=== PATIENT | female | born 1995 | race Caucasian/White ===

== ENCOUNTER 2018-02-28 20:27 | Emergency (ER) | payer BC ==
[~2018-02-28] VITALS: Ht 157.5 cm; Wt 81.7 kg
[~2018-02-28 20:27] MED LIST: AMOX500 PO; BIRTH CONTROL IMPLAN; Bactrim 400-801 EACH PO; Bactrim Ds Tab1 EACH PO; PROCODE120 PO
[2018-02-28] MEDS ORDERED: MIDO5 PO (20:54)
[2018-02-28] MEDS ORDERED: IBUP800 PO (22:21)
[2018-02-28] MEDS ORDERED: Percocet 5-3251 EACH PO (22:23)
== END 2018-02-28 22:56 | disposition home or self-care (01) ==
LOC: ER 20:27
DX: S30.0XXA Contusion of lower back and pelvis, initial encounter (principal); M54.16 Radiculopathy, lumbar region; Z88.8 Allergy status to other drugs, medicaments and biological substances; Z79.899 Other long term (current) drug therapy; V80.010A Animal-rider injured by fall from or being thrown from horse in noncollision accident, initial encounter
CPT/HCPCS: 71100; 72100; 99284-25

== ENCOUNTER 2018-03-15 19:10 | Emergency (ER) | payer BC ==
[~2018-03-15] VITALS: Ht 157.5 cm; Wt 81.7 kg
[~2018-03-15 19:10] MED LIST changes: +IBUP800 PO; +MIDO5 PO; +Percocet 5-3251 EACH PO
[2018-03-15] MEDS ORDERED: METCAR500 PO (19:35)
[2018-03-15] MEDS ORDERED: IBUP600 PO (20:21)
[2018-03-15] MEDS ORDERED: HYDR1TAB94 PO (20:21)
== END 2018-03-15 20:41 | disposition home or self-care (01) ==
LOC: ER 19:10
DX: S32.029A Unspecified fracture of second lumbar vertebra, initial encounter for closed fracture (principal); S32.039A Unspecified fracture of third lumbar vertebra, initial encounter for closed fracture; Z88.8 Allergy status to other drugs, medicaments and biological substances; V80.010A Animal-rider injured by fall from or being thrown from horse in noncollision accident, initial encounter
CPT/HCPCS: 72131; 99283-25

== ENCOUNTER 2018-06-27 17:41 | Emergency (ER) | payer BC ==
[~2018-06-27] VITALS: Ht 157.5 cm; Wt 90.7 kg
[~2018-06-27 17:41] MED LIST changes: +Augmentin 875-1 EACH PO; +HYDR1TAB94 PO; +IBUP600 PO; +METCAR500 PO
[2018-06-27] MEDS ORDERED: CYCL10 PO (18:37)
[2018-06-27] MEDS ORDERED: Naprosyn500 MG PO (18:37)
[2018-06-27] MEDS ORDERED: TRAM50 PO (18:37)
== END 2018-06-27 18:47 | disposition home or self-care (01) ==
LOC: ER 17:41
DX: M54.5 Low back pain (principal); Z88.1 Allergy status to other antibiotic agents; Z79.899 Other long term (current) drug therapy
CPT/HCPCS: 72100; 99283-25

== ENCOUNTER 2018-12-10 09:31 | Emergency (ER) | payer BC ==
[~2018-12-10] VITALS: Ht 162.6 cm; Wt 86.2 kg
[~2018-12-10 09:31] MED LIST changes: +CYCL10 PO; +Naprosyn500 MG PO; +TRAM50 PO
== END 2018-12-10 10:47 | disposition home or self-care (01) ==
LOC: ER 09:31
DX: M54.5 Low back pain (principal); G89.29 Other chronic pain; Z88.8 Allergy status to other drugs, medicaments and biological substances
CPT/HCPCS: 99283

== ENCOUNTER 2019-06-16 10:04 | Emergency (ER) | payer BC ==
[~2019-06-16] VITALS: Ht 157.5 cm; Wt 99.8 kg
[2019-06-16] MEDS ORDERED: Flonase 0.05% N16 GM (11:51)
[2019-06-16] MEDS ORDERED: Augmentin 875-1 EACH PO (11:51)
== END 2019-06-16 11:56 | disposition home or self-care (01) ==
LOC: ER 10:04
DX: J01.90 Acute sinusitis, unspecified (principal); B96.89 Other specified bacterial agents as the cause of diseases classified elsewhere; H66.91 Otitis media, unspecified, right ear; Z88.8 Allergy status to other drugs, medicaments and biological substances
CPT/HCPCS: 71046; 99283-25

== ENCOUNTER → 2020-05-16 | Outpatient (CLI) | payer BC ==
[~2020-05-16] MED LIST changes: +Flonase 0.05% N16 GM; +NITR100CA PO; +Pyridium100 MG PO; +SULFAMETHOXAZO1 EAC1 PO
== END | disposition home or self-care (01) ==
LOC: LAB SHORT 14:27 → LAB EV 14:27
DX: N39.0 Urinary tract infection, site not specified (principal)
CPT/HCPCS: 87077; 87086; 87186

== ENCOUNTER 2020-05-19 02:00 | Emergency (ER) | payer BC ==
[~2020-05-19] VITALS: Ht 160 cm; Wt 99.8 kg
[~2020-05-19 02:00] MED LIST changes: -NITR100CA PO; -Pyridium100 MG PO; -SULFAMETHOXAZO1 EAC1 PO
[2020-05-19] MEDS ORDERED: SULFAMETHOXAZO1 EAC1 PO (02:23)
[2020-05-19] MEDS ORDERED: Pyridium100 MG PO (02:23)
[2020-05-19 03:16] LABS: Source, Urine Clean Catch
[2020-05-19 03:18] LABS: Blood, Urine 1+ (Neg); Glucose Qualitative, Urine Neg (Neg); Ketones, Urine Neg (Neg); Leukocyte Esterase, Urine Neg (Neg); Nitrite, Urine Pos (Neg); Protein, Urine 2+ (Neg); Specific Gravity, Urine 1.025 (1.003-1.022); Urobilinogen, Urine 3+ (Normal)
[2020-05-19 03:20] LABS: Appearance, Urine Clear (Clear); Bilirubin, Urine 3+ (Neg); Color, Urine Orange (P-Yellow)
[2020-05-19 03:25] LABS: Bacteria Mod /hpf; Calcium Oxalate Crystals Mod /hpf; Squamous Epithelial Cells Few /hpf (Few); White Blood Cells, Urine 0-2 /hpf (0-5)
[2020-05-19] MEDS ORDERED: NITR100CA PO (03:36)
== END 2020-05-19 03:44 | disposition home or self-care (01) ==
LOC: ER 02:00
PROVIDERS: Emergency Medicine
DX: N39.0 Urinary tract infection, site not specified (principal); Z88.1 Allergy status to other antibiotic agents; Z79.899 Other long term (current) drug therapy
CPT/HCPCS: 81001; 81025; 87086; 99283

== ENCOUNTER 2020-12-18 06:30 | Emergency (ER) | payer OTHER, BC ==
[~2020-12-18] VITALS: Ht 160 cm; Wt 102.1 kg
[~2020-12-18 06:30] MED LIST changes: +NITR100CA PO; +Pyridium100 MG PO; +SULFAMETHOXAZO1 EAC1 PO
== END 2020-12-18 07:20 | disposition home or self-care (01) ==
LOC: ER 06:30
DX: O99.891 Other specified diseases and conditions complicating pregnancy (principal); R55 Syncope and collapse; Z88.1 Allergy status to other antibiotic agents; Z79.899 Other long term (current) drug therapy; Z3A.09 9 weeks gestation of pregnancy
CPT/HCPCS: 99283

== ENCOUNTER → 2020-12-22 | Outpatient (CLI) | payer OTHER, BC ==
[~2020-12-22] MED LIST changes: +SERT25 PO
[2020-12-22 11:16] LABS: Source, Urine Clean Catch
[2020-12-22 13:02] LABS: Appearance, Urine Clear (Clear); Bilirubin, Urine Neg (Neg); Blood, Urine 1+ (Neg); Color, Urine Yellow (P-Yellow); Glucose Qualitative, Urine Neg (Neg); Ketones, Urine Neg (Neg); Leukocyte Esterase, Urine 2+ (Neg); Nitrite, Urine Pos (Neg); Protein, Urine 1+ (Neg); Specific Gravity, Urine 1.015 (1.003-1.022); Urobilinogen, Urine NORM (Normal)
[2020-12-22 13:52] LABS: Bacteria Many /hpf; Red Blood Cells, Urine 0-2 /hpf (0-2); Squamous Epithelial Cells Not Seen /hpf (Few)
== END | disposition home or self-care (01) ==
LOC: LAB SHORT 11:12
PROVIDERS: Obstetrics & Gynecology
DX: R82.90 Unspecified abnormal findings in urine (principal)
CPT/HCPCS: 81001; 87086

== ENCOUNTER 2020-12-28 11:17 | Day surgery (SDC) | payer BC ==
[~2020-12-28 11:17] MED LIST changes: -SERT25 PO
--- NOTE | 2020-12-28 12:09 | NUR ---
Ambulatory in Day Surgery History, Chart, Medications and Allergies reviewed before start of procedure.Lungs clear T/O to Auscultation. Patient confirms NPO status and agrees with scheduled surgery. Pre-Op teaching done. Pt verbalizes understanding.
--- NOTE | 2020-12-28 16:29 | NUR ---
12/28/20 1629 CIERACOLIN MTZ PT RECEIVED DOXYCYCLINE PRIOR TO PROCEDURE PER DR BERRIOS ORDERS. PT AGUSTINA VERBALLY ORDERED CYTOTEC 800 MCG INTRA OP RECTALLY.
--- NOTE | 2020-12-28 17:30 | NUR ---
1633 to lisa medina from PACU, vss, scan red drainage on pinky pad. po fluids, jello and cerackers given, chelsea well. 165 po pain med given 1715 dc instructs reviewed patient verbalized understanding 1730 dc to home, escort to car via w/c. care turned over to boyfriend
== END 2020-12-28 23:00 | disposition home or self-care (01) ==
LOC: ORSCMMR 11:17 → ORD 11:17 → ORSCMMR 11:18 → ORD 13:00
PROVIDERS: Obstetrics & Gynecology
PROC: 10D17ZZ Extraction of Products of Conception, Retained, Via Natural or Artificial Opening (ICD-10-PCS; principal; 2020-12-28 13:00)
DX: O02.1 Missed abortion (principal); E66.01 Morbid (severe) obesity due to excess calories; Z68.39 Body mass index [BMI] 39.0-39.9, adult
CPT/HCPCS: 88305; A9270; J1100; J1720; J1885; J2210; J2250; J2405; J2704; J3010; J7060; J7120

== ENCOUNTER 2021-01-01 15:30 | Emergency (ER) | payer BC ==
[~2021-01-01] VITALS: Ht 162.6 cm; Wt 72.6 kg
[2021-01-01] MEDS ORDERED: SERT25 PO (18:50)
[2021-01-01 19:26] LABS: BASOPHILS ABSOLUTE AUTO 0.04 K/mm3 (0.00-0.23); BASOPHILS PERCENT AUTO 0 % (0-2); EOSINOPHILS ABSOLUTE AUTO 0.24 K/mm3 (0.00-0.68); EOSINOPHILS PERCENT AUTO 2 % (0-6); Hematocrit 39.1 % (33.0-51.0); IMMATURE GRAN ABSOLUTE AUTO 0.13 K/mm3 (0.00-0.10); IMMATURE GRAN PERCENT AUTO 1 % (0-1); LYMPHOCYTES ABSOLUTE AUTO 2.14 K/mm3 (0.84-5.20); LYMPHOCYTES PERCENT AUTO 19 % (21-46); MONOCYTES ABSOLUTE AUTO 0.65 K/mm3 (0.16-1.47); MONOCYTES PERCENT AUTO 6 % (4-13); Mean Corpuscular HGB 29.2 pg (26.0-34.0); Mean Corpuscular HGB Conc 33.2 g/dL (31.5-36.5); Mean Corpuscular Volume 88 fL (80-100); Mean Platelet Volume 10.7 fL (9.1-12.4); NEUTROPHILS ABSOLUTE AUTO 8.11 K/mm3 (1.96-9.15); NEUTROPHILS PERCENT AUTO 72 % (41-73); Platelet Count 270 K/mm3 (150-400); RDW Coefficient Variation 12.2 % (11.7-14.2); RDW Standard Deviation 38.8 fL (35.1-46.3); Red Blood Cell Count 4.45 M/mm3 (3.80-5.20); White Blood Cell Count 11.31 K/mm3 (4.00-11.30)
== END 2021-01-01 20:10 | disposition home or self-care (01) ==
LOC: ER 15:30
PROVIDERS: Emergency Medicine
DX: N99.820 Postprocedural hemorrhage of a genitourinary system organ or structure following a genitourinary system procedure (principal); Z79.899 Other long term (current) drug therapy
CPT/HCPCS: 36415; 76830; 76856; 84702; 85025; 99284-25

== ENCOUNTER 2021-04-08 14:10 | Day surgery (SDC) | payer BC ==
[~2021-04-08] VITALS: Ht 160 cm; Wt 101.0 kg
[~2021-04-08 14:10] MED LIST changes: +ONDA4ODT MM; +SERT25 PO
== END 2021-04-08 17:30 | disposition home or self-care (01) ==
LOC: ORSCSDS 14:10
DX: O03.4 Incomplete spontaneous abortion without complication (principal); Z53.9 Procedure and treatment not carried out, unspecified reason

== ENCOUNTER 2021-04-09 09:24 | Day surgery (SDC) | payer BC ==
[~2021-04-09] VITALS: Ht 160 cm; Wt 101.1 kg
--- NOTE | 2021-04-09 10:11 | NUR ---
PT CONFIRMS NPO, RIDE HOME. PT AMBULATES INDEPENDENTLY, DENIES PAIN.
--- NOTE | 2021-04-09 13:11 | NUR ---
04/09/21 1311 Abigail Kuhn ANTIBIOTICS NOT ORDERED PRIOR TO PROCEDRE PER ORDERS.
--- NOTE | 2021-04-09 14:22 | NUR ---
PT DENIES NEED FOR PAIN MEDICATION. TOLERATING PO INTAKE. DENIES NAUSEA. SMALL AMOUNT OF BLEEDING ON PAD. PT ABLE TO AMBULATE TO BATHROOM W/O ASSIST. PT ABLE TO VOID W/O DIFFICULTY. PT DRESSED, IV D/C'D, WNL, DRESSING APPLIED. D/C INSTRUCTIONS GIVEN. PT DENIES QUESTIONS.
== END 2021-04-09 22:54 | disposition home or self-care (01) ==
LOC: ORSCMMR 09:24 → ORD 12:00 → ORSCMMR 22:54
PROVIDERS: Obstetrics & Gynecology
PROC: 0UDB8ZZ Extraction of Endometrium, Via Natural or Artificial Opening Endoscopic (ICD-10-PCS; principal; 2021-04-09 11:30)
DX: O03.4 Incomplete spontaneous abortion without complication (principal); E66.01 Morbid (severe) obesity due to excess calories; Z68.39 Body mass index [BMI] 39.0-39.9, adult
CPT/HCPCS: 88305; J1100; J1885; J2405; J2704; J3010; J7120

== ENCOUNTER → 2021-10-28 | Outpatient (CLI) | payer BC | END | disposition home or self-care (01) | LOC: LAB SHORT 10:33 → LAB 10:33 | PROVIDERS: Obstetrics & Gynecology | DX: Z01.419 Encounter for gynecological examination (general) (routine) without abnormal findings (principal) | CPT/HCPCS: G0123 ==

== ENCOUNTER → 2021-10-30 | Outpatient (CLI) | payer BC | LOC: LAB SHORT 08:30 | DX: Z31.9 Encounter for procreative management, unspecified (principal) ==

== ENCOUNTER 2022-06-14 21:16 | Emergency (ER) | payer BC, OTHER ==
[~2022-06-14] VITALS: Ht 160 cm; Wt 102.1 kg
== END 2022-06-14 21:44 | disposition home or self-care (01) ==
LOC: ER 21:16
DX: J06.9 Acute upper respiratory infection, unspecified (principal); Z88.8 Allergy status to other drugs, medicaments and biological substances; Z88.0 Allergy status to penicillin; Z88.1 Allergy status to other antibiotic agents; Z88.2 Allergy status to sulfonamides
CPT/HCPCS: 99283

== ENCOUNTER 2022-07-05 18:38 | Emergency (ER) | payer BC, OTHER ==
[~2022-07-05] VITALS: Ht 160 cm; Wt 99.8 kg
[2022-07-05 19:08] LABS: BASOPHILS ABSOLUTE AUTO 0.05 K/mm3 (0.00-0.23); BASOPHILS PERCENT AUTO 0 % (0-2); EOSINOPHILS ABSOLUTE AUTO 0.23 K/mm3 (0.00-0.68); EOSINOPHILS PERCENT AUTO 2 % (0-6); Hematocrit 39.2 % (33.0-51.0); Hemoglobin 13.3 g/dL (11.5-16.0); IMMATURE GRAN ABSOLUTE AUTO 0.07 K/mm3 (0.00-0.10); IMMATURE GRAN PERCENT AUTO 1 % (0-1); LYMPHOCYTES ABSOLUTE AUTO 4.06 K/mm3 (0.84-5.20); LYMPHOCYTES PERCENT AUTO 34 % (21-46); MONOCYTES ABSOLUTE AUTO 0.77 K/mm3 (0.16-1.47); MONOCYTES PERCENT AUTO 7 % (4-13); Mean Corpuscular HGB 29.1 pg (26.0-34.0); Mean Corpuscular HGB Conc 33.9 g/dL (31.5-36.5); Mean Corpuscular Volume 86 fL (80-100); Mean Platelet Volume 10.5 fL (9.1-12.4); NEUTROPHILS ABSOLUTE AUTO 6.61 K/mm3 (1.96-9.15); NEUTROPHILS PERCENT AUTO 56 % (41-73); Platelet Count 244 K/mm3 (150-400); RDW Standard Deviation 37.6 fL (35.1-46.3); Red Blood Cell Count 4.57 M/mm3 (3.80-5.20); White Blood Cell Count 11.79 K/mm3 (4.00-11.30)
[2022-07-05 19:29] LABS: Albumin/Globulin Ratio 1.2 (0.8-1.8); Bilirubin, Total 0.3 mg/dL (0.1-1.0); Bun/Creatinine Ratio 15.6 (12.0-20.0); Calcium, Blood 9.9 mg/dL (8.5-10.1); Creatinine, Blood 0.83 mg/dL (0.40-1.00); Globulin, Blood 3.4 g/dL (2.2-4.0); Potassium, Blood 3.9 mmol/L (3.5-5.5); Total Protein, Blood 7.4 g/dL (6.4-8.2)
[2022-07-05] MEDS ORDERED: PRENATAL TABLE1 EAC2 PO (19:54)
[2022-07-05] MEDS ORDERED: ONDA4ODT MM (19:54)
== END 2022-07-05 20:33 | disposition home or self-care (01) ==
LOC: ER 18:38
PROVIDERS: Student in an Organized Health Care Education/Training Program
DX: O20.9 Hemorrhage in early pregnancy, unspecified (principal); Z3A.01 Less than 8 weeks gestation of pregnancy; Z88.0 Allergy status to penicillin; Z88.8 Allergy status to other drugs, medicaments and biological substances; Z79.899 Other long term (current) drug therapy
CPT/HCPCS: 36415; 76801; 76817; 80053; 85025; 86850; 86900; 86901

== ENCOUNTER 2022-07-16 12:44 | Emergency (ER) | payer BC, OTHER ==
[~2022-07-16] VITALS: Ht 160 cm; Wt 102.1 kg
[~2022-07-16 12:44] MED LIST changes: +PRENATAL TABLE1 EAC2 PO
[2022-07-16 13:44] LABS: BASOPHILS ABSOLUTE AUTO 0.04 K/mm3 (0.00-0.23); BASOPHILS PERCENT AUTO 1 % (0-2); EOSINOPHILS ABSOLUTE AUTO 0.14 K/mm3 (0.00-0.68); EOSINOPHILS PERCENT AUTO 2 % (0-6); Hematocrit 42.2 % (33.0-51.0); Hemoglobin 14.5 g/dL (11.5-16.0); IMMATURE GRAN ABSOLUTE AUTO 0.05 K/mm3 (0.00-0.10); IMMATURE GRAN PERCENT AUTO 1 % (0-1); LYMPHOCYTES PERCENT AUTO 27 % (21-46); MONOCYTES ABSOLUTE AUTO 0.57 K/mm3 (0.16-1.47); MONOCYTES PERCENT AUTO 6 % (4-13); Mean Corpuscular HGB 29.1 pg (26.0-34.0); Mean Corpuscular HGB Conc 34.4 g/dL (31.5-36.5); Mean Corpuscular Volume 85 fL (80-100); Mean Platelet Volume 10.7 fL (9.1-12.4); NEUTROPHILS ABSOLUTE AUTO 5.67 K/mm3 (1.96-9.15); NEUTROPHILS PERCENT AUTO 64 % (41-73); Platelet Count 266 K/mm3 (150-400); RDW Coefficient Variation 12.4 % (11.7-14.2); Red Blood Cell Count 4.98 M/mm3 (3.80-5.20); White Blood Cell Count 8.87 K/mm3 (4.00-11.30)
[2022-07-16 14:24] LABS: Albumin, Blood 3.9 g/dL (3.4-5.0); Bilirubin, Total 0.5 mg/dL (0.1-1.0); Bun/Creatinine Ratio 10.9 (12.0-20.0); Calcium, Blood 9.4 mg/dL (8.5-10.1); Creatinine, Blood 0.74 mg/dL (0.40-1.00); Globulin, Blood 3.9 g/dL (2.2-4.0); Potassium, Blood 3.8 mmol/L (3.5-5.5); Total Protein, Blood 7.8 g/dL (6.4-8.2)
[2022-07-16 15:21] LABS: Source, Urine Clean Catch
[2022-07-16 15:30] LABS: Appearance, Urine Clear (Clear); Bilirubin, Urine Neg (Neg); Blood, Urine Neg (Neg); Color, Urine Yellow (P-Yellow); Glucose Qualitative, Urine Neg (Neg); Ketones, Urine Neg (Neg); Leukocyte Esterase, Urine Neg (Neg); Nitrite, Urine Neg (Neg); Protein, Urine 1+ (Neg); Urobilinogen, Urine NORM (Normal)
== END 2022-07-16 15:43 | disposition home or self-care (01) ==
LOC: ER 12:44
PROVIDERS: Physician Assistant
DX: O20.0 Threatened abortion (principal); Z3A.08 8 weeks gestation of pregnancy; Z88.8 Allergy status to other drugs, medicaments and biological substances; Z88.0 Allergy status to penicillin; Z79.899 Other long term (current) drug therapy
CPT/HCPCS: 36415; 76801; 76817; 80053; 84702; 85025; 86900; 86901

== ENCOUNTER → 2022-12-27 | Outpatient (CLI) | payer BC, OTHER ==
[2022-12-28 13:09] LABS: Candida species (DNA Probe) Negative (NEGATIVE); G. vaginalis (DNA Probe) Negative (NEGATIVE); T. vaginalis (DNA Probe) Negative (NEGATIVE)
== END | disposition home or self-care (01) ==
LOC: LAB SHORT 14:13 → LAB 14:13
PROVIDERS: Obstetrics & Gynecology
DX: N76.0 Acute vaginitis (principal)
CPT/HCPCS: 87480; 87510; 87660

== ENCOUNTER → 2023-01-26 | Outpatient (CLI) | payer BC, OTHER | LOC: LAB 12:00 → LAB SHORT 12:00 | DX: O09.93 Supervision of high risk pregnancy, unspecified, third trimester (principal); Z3A.00 Weeks of gestation of pregnancy not specified | CPT/HCPCS: 87081; 87150 ==

== ENCOUNTER → 2023-02-02 | Outpatient (CLI) | payer BC, OTHER | END | disposition home or self-care (01) | LOC: LAB SHORT 11:10 → LAB 11:10 | DX: F41.8 Other specified anxiety disorders (principal); R30.0 Dysuria | CPT/HCPCS: 87086 ==

== ENCOUNTER 2023-02-20 19:39 | Inpatient (IN) | payer BC, OTHER ==
[~2023-02-20] VITALS: Ht 160 cm; Wt 104.5 kg
[2023-02-20] MEDS ORDERED: TAMS.4ER PO (20:33)
[2023-02-20] MEDS ORDERED: PRENATAL TABLE1 EAC2 PO (20:33)
[2023-02-20 21:00] LABS: BASOPHILS ABSOLUTE AUTO 0.05 K/mm3 (0.00-0.23); BASOPHILS PERCENT AUTO 1 % (0-2); EOSINOPHILS ABSOLUTE AUTO 0.11 K/mm3 (0.00-0.68); EOSINOPHILS PERCENT AUTO 1 % (0-6); Hematocrit 33.5 % (33.0-51.0); Hemoglobin 11.4 g/dL (11.5-16.0); IMMATURE GRAN ABSOLUTE AUTO 0.13 K/mm3 (0.00-0.10); IMMATURE GRAN PERCENT AUTO 1 % (0-1); LYMPHOCYTES ABSOLUTE AUTO 2.46 K/mm3 (0.84-5.20); LYMPHOCYTES PERCENT AUTO 23 % (21-46); MONOCYTES ABSOLUTE AUTO 0.73 K/mm3 (0.16-1.47); MONOCYTES PERCENT AUTO 7 % (4-13); Mean Corpuscular HGB 28.8 pg (26.0-34.0); Mean Corpuscular Volume 85 fL (80-100); Mean Platelet Volume 12.2 fL (9.1-12.4); NEUTROPHILS ABSOLUTE AUTO 7.28 K/mm3 (1.96-9.15); NEUTROPHILS PERCENT AUTO 68 % (41-73); Platelet Count 176 K/mm3 (150-400); RDW Coefficient Variation 13.2 % (11.7-14.2); RDW Standard Deviation 40.5 fL (35.1-46.3); Red Blood Cell Count 3.96 M/mm3 (3.80-5.20); White Blood Cell Count 10.76 K/mm3 (4.00-11.30)
[2023-02-20 21:12] VITALS: BP 114/55
[2023-02-21] VITALS (42 sets, daily range): BP systolic 92–133; BP diastolic 50–81
--- NOTE | 2023-02-21 22:41 | NUR ---
BREAST PUMP SET UP AND EDUCATION PROVIDED. PT DECLINED TO PUMP AT THAT TIME. INSTRUCTED TO CALL IF SHE NEEDS ASSISTANCE PUMPING. EDUCATION ON CLEANING PARTS ALSO PROVIDED.
[2023-02-22 02:50] VITALS: BP 114/61
--- NOTE | 2023-02-22 03:18 | NUR ---
PT DECLINING TO RECIEVE ABX TREATMENT AT THIS TIME. RISK AND BENIFTS DISCUSSED. PT INSTRUCTED TO WATCH CAREFULLY FOR S/SX OF INFECTION.
--- NOTE | 2023-02-22 03:49 | NUR ---
DECLINES MMR VACCINE
--- NOTE | 2023-02-22 03:55 | NUR ---
DC NOTE VSS, SCANT BLEEDING AND PT FEELING WELL W/ NO COMPLAINTS. PT PROVIDING SELF CARE APPROPRIATLY. DECLINES CLINDAMYCIN, GENTAMICIN, AND MMR AFTER DISCUSSING REASON FOR ADMINISTRATION. PT INSTRUCTED TO WATCH FOR SIGNS OF INFECTIONS CLOSELY. PT EAGER TO SEE NB AND LEAVE WHEN NB TRANSPORTED. PT VOIDING. DC EDUCATION GIVEN, PT STATES SHE HAS NO ADDITIONAL QUESTION AND IS READY TO LEAVE W/ NB.
== END 2023-02-22 04:05 | disposition home or self-care (01) | DRG 807 ==
LOC: OBS 19:39 → BC 19:40 → OBS 19:53 → BC 19:56
PROVIDERS: ADMIT Family Medicine
PROC: 3E0P7VZ Introduction of Hormone into Female Reproductive, Via Natural or Artificial Opening (ICD-10-PCS; principal; 2023-02-21)
PROC: 10E0XZZ Delivery of Products of Conception, External Approach (ICD-10-PCS; 2023-02-21)
PROC: 3E033VJ Introduction of Other Hormone into Peripheral Vein, Percutaneous Approach (ICD-10-PCS; 2023-02-21)
PROC: 10907ZC Drainage of Amniotic Fluid, Therapeutic from Products of Conception, Via Natural or Artificial Opening (ICD-10-PCS; 2023-02-21)
PROC: 0HQ9XZZ Repair Perineum Skin, External Approach (ICD-10-PCS; 2023-02-21)
PROC: 00HU33Z Insertion of Infusion Device into Spinal Canal, Percutaneous Approach (ICD-10-PCS; 2023-02-21)
PROC: 3E0R3BZ Introduction of Anesthetic Agent into Spinal Canal, Percutaneous Approach (ICD-10-PCS; 2023-02-21)
DX: O99.344 Other mental disorders complicating childbirth (principal); Z37.0 Single live birth; F41.3 Other mixed anxiety disorders; Z3A.39 39 weeks gestation of pregnancy; O66.0 Obstructed labor due to shoulder dystocia; O70.0 First degree perineal laceration during delivery; Z88.8 Allergy status to other drugs, medicaments and biological substances; Z88.0 Allergy status to penicillin; Z88.2 Allergy status to sulfonamides; Z79.899 Other long term (current) drug therapy; Z67.40 Type O blood, Rh positive
CPT/HCPCS: 51702; 85025; 86850; 86900; 86901; A9270; J1885; J2590; J3010; J7120

== ENCOUNTER 2024-04-15 07:51 | Emergency (ER) | payer OTHER ==
[~2024-04-15] VITALS: Ht 160 cm; Wt 99.8 kg
[~2024-04-15 07:51] MED LIST changes: +TAMS.4ER PO
[2024-04-15 09:45] LABS: BASOPHILS ABSOLUTE AUTO 0.04 K/mm3 (0.00-0.23); BASOPHILS PERCENT AUTO 1 % (0-2); EOSINOPHILS ABSOLUTE AUTO 0.16 K/mm3 (0.00-0.68); EOSINOPHILS PERCENT AUTO 2 % (0-6); Hematocrit 41.1 % (33.0-51.0); Hemoglobin 13.8 g/dL (11.5-16.0); IMMATURE GRAN ABSOLUTE AUTO 0.04 K/mm3 (0.00-0.10); IMMATURE GRAN PERCENT AUTO 1 % (0-1); LYMPHOCYTES ABSOLUTE AUTO 2.46 K/mm3 (0.84-5.20); LYMPHOCYTES PERCENT AUTO 31 % (21-46); MONOCYTES ABSOLUTE AUTO 0.51 K/mm3 (0.16-1.47); MONOCYTES PERCENT AUTO 6 % (4-13); Mean Corpuscular HGB 29.2 pg (26.0-34.0); Mean Corpuscular HGB Conc 33.6 g/dL (31.5-36.5); Mean Corpuscular Volume 87 fL (80-100); Mean Platelet Volume 10.5 fL (9.1-12.4); NEUTROPHILS ABSOLUTE AUTO 4.85 K/mm3 (1.96-9.15); NEUTROPHILS PERCENT AUTO 60 % (41-73); Platelet Count 193 K/mm3 (150-400); RDW Coefficient Variation 12.6 % (11.7-14.2); RDW Standard Deviation 39.9 fL (35.1-46.3); Red Blood Cell Count 4.72 M/mm3 (3.80-5.20); White Blood Cell Count 8.06 K/mm3 (4.00-11.30)
[2024-04-15 10:24] LABS: Albumin, Blood 3.8 g/dL (3.4-5.0); Albumin/Globulin Ratio 1.2 (0.8-1.8); Bilirubin, Total 0.4 mg/dL (0.1-1.0); Bun/Creatinine Ratio 14.8 (12.0-20.0); Calcium, Blood 9.2 mg/dL (8.5-10.1); Creatinine, Blood 0.81 mg/dL (0.40-1.00); Globulin, Blood 3.3 g/dL (2.2-4.0); Potassium, Blood 4.3 mmol/L (3.5-5.5); Total Protein, Blood 7.1 g/dL (6.4-8.2)
[2024-04-15 11:45] VITALS: BP 117/66
== END 2024-04-15 11:56 | disposition home or self-care (01) ==
LOC: ER 07:51
PROVIDERS: Physician Assistant
DX: O41.8X10 Other specified disorders of amniotic fluid and membranes, first trimester, not applicable or unspecified (principal); Z3A.01 Less than 8 weeks gestation of pregnancy; Z88.1 Allergy status to other antibiotic agents; Z88.0 Allergy status to penicillin; Z88.2 Allergy status to sulfonamides; Z79.899 Other long term (current) drug therapy
CPT/HCPCS: 76801; 76817; 80053; 84702; 85025; 99284-25

== ENCOUNTER 2024-04-19 08:19 | Emergency (ER) | payer OTHER ==
[~2024-04-19] VITALS: Ht 160 cm; Wt 99.8 kg
[2024-04-19 09:04] VITALS: BP 118/86
== END 2024-04-19 09:45 | disposition home or self-care (01) ==
LOC: ER 08:19
DX: O99.891 Other specified diseases and conditions complicating pregnancy (principal); R55 Syncope and collapse; Z88.1 Allergy status to other antibiotic agents; Z88.0 Allergy status to penicillin; Z88.2 Allergy status to sulfonamides; Z79.899 Other long term (current) drug therapy; Z3A.01 Less than 8 weeks gestation of pregnancy
CPT/HCPCS: 93005; 93010; 99284-25

== ENCOUNTER → 2024-06-06 | Outpatient (CLI) | payer OTHER ==
[2024-06-11 08:06] LABS: APTIMA MEDIA TYPE Urine; C. TRACHOMATIS BY TMA Negative (Negative); N. GONORRHOEAE BY TMA Negative (Negative); SPECIMEN SOURCE Urine
== END ==
LOC: LAB SHORT 17:23 → LAB 17:23
PROVIDERS: Obstetrics & Gynecology
DX: Z11.3 Encounter for screening for infections with a predominantly sexual mode of transmission (principal)
CPT/HCPCS: 87491; 87591

== ENCOUNTER 2024-06-18 05:30 | Emergency (ER) | payer OTHER ==
[~2024-06-18] VITALS: Ht 160 cm; Wt 103.4 kg
[2024-06-18] MEDS ORDERED: Doxycycline Hyclate 100 MG TAB PO ONE (08:00)
[2024-06-18] MEDS ORDERED: DOXY100 PO (08:02)
[2024-06-18] MEDS ORDERED: Clindamycin HCl 150 MG Cap PO ONE (08:05)
[2024-06-18] MEDS ORDERED: Clindamycin HC150 MG PO (08:07)
[2024-06-18 08:21] VITALS: BP 109/61
== END 2024-06-18 08:22 | disposition home or self-care (01) ==
LOC: ER 05:30
DX: O99.712 Diseases of the skin and subcutaneous tissue complicating pregnancy, second trimester (principal); L03.211 Cellulitis of face; Z3A.16 16 weeks gestation of pregnancy; K21.9 Gastro-esophageal reflux disease without esophagitis; Z88.0 Allergy status to penicillin; Z88.1 Allergy status to other antibiotic agents
CPT/HCPCS: 99283; A9270

== ENCOUNTER → 2024-12-23 | Outpatient (CLI) | payer OTHER ==
[~2024-12-23] MED LIST changes: +ACET500 PO; +Clindamycin HC150 MG PO; +DOXY100 PO; +INSULANI SC; +OXAYDO5 M1 PO
== END | disposition home or self-care (01) ==
LOC: LAB 17:20 → LAB SHORT 17:20
DX: T81.41XA Infection following a procedure, superficial incisional surgical site, initial encounter (principal)
CPT/HCPCS: 87070; 87205